=== PATIENT | male | born 1995 | race American Indian/Alaskan Native ===

== ENCOUNTER 2017-07-14 22:57 | Emergency (ER) | payer OTHER ==
[2017-07-15 00:27] LABS: Basophils % (Auto) 0.4 % (0.0-1.8); Eosinophils % (Auto) 3.1 % (0.0-4.3); Hematocrit 41.8 % (35.5-45.6); Hemoglobin 13.6 gm/dl (11.8-15.2); Mean Corpuscular HGB Conc 33 % (32-34); Mean Corpuscular Hemoglobin 28 pg (28-32); Mean Corpuscular Volume 86 fl (84-94); Platelet Count 237 K/mm3 (140-440); Red Blood Count 4.84 M/mm3 (3.65-5.03); Red Cell Distribution Width 15.5 % (13.2-15.2); White Blood Count 5.5 K/mm3 (4.5-11.0)
[2017-07-15 00:49] LABS: Anion Gap 17 mmol/L; BUN/Creatinine Ratio 12.85; Blood Urea Nitrogen 9 mg/dL (9-20); Calcium 9.3 mg/dL (8.4-10.2); Carbon Dioxide 27 mmol/L (22-30); Chloride 103.2 mmol/L (98-107); Glucose 100 mg/dL (75-100); Potassium 3.9 mmol/L (3.6-5.0); Sodium 143 mmol/L (137-145)
--- NOTE | 2017-07-15 07:47 | Emergency Department Report ---
ED Chest Pain HPI - General Chief Complaint: Chest Pain Stated Complaint: CHEST PAIN Time Seen by Provider: 07/15/17 07:36 Source: patient Mode of arrival: Ambulatory Limitations: No Limitations - History of Present Illness Initial Comments: This is a 22-year-old -[place] male presents to the emergency department with a one to 2 day history of some left-sided chest discomfort. Currently he is asymptomatic. He denies any shortness of breath, nausea, vomiting, back pain or diaphoresis. He has not taken anything for his symptoms prior to presentation. The pain worsens with certain movements of his body. No recent travel or sick contacts at home. He denies any tobacco, illicit drug use, or alcohol abuse. He does not have a primary care physician. Severity scale (0 -10): 2 - Related Data Home Medications Medication Instructions Recorded Confirmed Last Taken No Known Home Medications [No 07/15/17 07/15/17 Unknown Reported Home Medications] Allergies Allergy/AdvReac Type Severity Reaction Status Date / Time No Known Allergies Allergy Verified 07/15/17 06:47 Heart Score - HEART Score History: Slightly suspicious EKG: Non-specific Age: < 45 Risk factors: No known risk factors Troponin: < normal limit HEART Score: 1 - Critical Actions Critical Actions: 0-3 pts:0.9-1.7%risk of adverse cardiac event.Candidate for discharge ED Review of Systems ROS: Stated complaint: CHEST PAIN Other details as noted in HPI Comment: All other systems reviewed and negative Constitutional: denies: chills, fever Eyes: denies: eye pain, eye discharge, vision change ENT: denies: ear pain, throat pain Respiratory: denies: cough, shortness of breath, wheezing Cardiovascular: chest pain. denies: palpitations Gastrointestinal: denies: abdominal pain, nausea, diarrhea Genitourinary: denies: urgency, dysuria Musculoskeletal: denies: back pain, joint swelling, arthralgia Skin: denies: rash, lesions Neurological: denies: headache, weakness, paresthesias ED Past Medical Hx - Past Medical History Previous Medical History?: No - Surgical History Past Surgical History?: No - Social History Smoking Status: Never Smoker - Medications Home Medications: Home Medications Medication Instructions Recorded Confirmed Last Taken Type No Known Home Medications [No 07/15/17 07/15/17 Unknown History Reported Home Medications] ED Physical Exam - General Limitations: No Limitations - Other Other exam information: GENERAL: The patient is well-developed well-nourished. HENT: Normocephalic. Atraumatic. Patient has moist mucous membranes. EYES: Extraocular motions are intact. Pupils equal reactive to light bilaterally. NECK: Supple. Trachea is midline. CHEST/LUNGS: Clear to auscultation. There is no respiratory distress noted. HEART/CARDIOVASCULAR: Regular. There is no tachycardia. There is no gallop rub or murmur. ABDOMEN: Abdomen is soft, nontender. Patient has normal bowel sounds. There is no abdominal distention. Obese habitus. SKIN: Skin is warm and dry. NEURO: The patient is awake, alert, and oriented. The patient is cooperative. The patient has no focal neurologic deficits. The patient has normal speech. MUSCULOSKELETAL: There is no tenderness or deformity. There is no limitation range of motion. There is no evidence of acute injury. ED Course Vital Signs 07/14/17 07/15/17 07/15/17 22:58 04:35 06:48 Temperature 98.1 F 98.0 F Pulse Rate 78 48 L 47 L Respiratory 18 18 Rate Blood Pressure 155/86 136/70 Blood Pressure [Left] O2 Sat by Pulse 100 99 99 Oximetry 07/15/17 07/15/17 06:50 07:00 Temperature 98 F Pulse Rate 47 L 49 L Respiratory 12 18 Rate Blood Pressure Blood Pressure 151/87 139/75 [Left] O2 Sat by Pulse 99 99 Oximetry KP score - Kp Score Age > 65: (0) No Aspirin use within the Past 7 Days: (0) No 3 or more CAD Risk Factors: (0) No 2 or more Angina events in past 24 hrs: (0) No Known CAD with more than 50% Stenosis: (0) No Elevated Cardiac Markers: (0) No ST Deviation Greater than 0.5mm: (0) No KP Score: 0 ED Medical Decision Making - Lab Data Result diagrams: 07/14/17 23:54 07/14/17 23:54 - EKG Data -: EKG Interpreted by Me EKG shows normal: sinus rhythm, axis, intervals, QRS complexes (LVH), ST-T waves Rate: normal - EKG Data When compared to previous EKG there are: previous EKG unavailable Interpretation: LVH - Radiology Data Radiology results: image reviewed interpreted by me: Chest x-ray does not show any acute process. There are no pleural effusions, obvious pneumonia and there is no pneumothorax. - Medical Decision Making 22-year-old male presents with a one to 2 day history of some left-sided chest pain but he is now asymptomatic. EKG may show some mild LVH but otherwise no ST elevation IA, ischemia or dysrhythmia. Labs unremarkable including negative troponins 3. Chest x-ray does not show any acute process. He does not have any risk factors for coronary artery disease. Low heart score, low KP score, low well score criteria and negative on the pulmonary embolism rule out criteria. He'll be discharged home to follow up with a primary care physician and return to the ER with any worsening of symptoms or any acute distress. - Differential Diagnosis costochondritis, GERD, muscle spasm, IA Critical Care Time: No Critical care attestation.: If time is entered above; I have spent that time in minutes in the direct care of this critically ill patient, excluding procedure time. ED Disposition Clinical Impression: Chest pain Qualifiers: Chest pain type: unspecified Qualified Code(s): R07.9 - Chest pain, unspecified Disposition: DC- TO HOME OR SELFCARE Is pt being admited?: No Condition: Stable Instructions: Chest Pain (ED), Costochondritis (ED) Additional Instructions: Please follow up with a primary care physician in the next few days. Return to the emergency Department with any worsening of your symptoms or any acute distress. I have given you a referral for a local [employer], Dr. Newman, occasionally would like to follow up regarding your chest pain. Referrals: SEVERIANO DELANEY MD [Primary Care Provider] - 3-5 Days VIRI NEWMAN MD [Staff Physician] - 3-5 Days CARIN CHENG MD [Staff Physician] - 3-5 Days [facility] [Outside] - 3-5 Days Time of Disposition: 08:26
--- NOTE | 2017-07-15 08:19 | XRay Report ---
ROUTINE CHEST, TWO VIEWS: HISTORY: chest pain. The trachea, heart, mediastinal contour, lung gar and bony thorax are unremarkable. IMPRESSION: Unremarkable chest x-ray.
[2017-07-15 08:39] VITALS: BP 127/76
== END 2017-07-15 08:40 | disposition home or self-care (01) ==
LOC: ED 22:57
DX: R07.9 Chest pain, unspecified (principal)
CPT/HCPCS: 36415; 71020; 80048; 84484; 85025; 93005; 93010